=== PATIENT | male | born 1980 | race Caucasian/White ===

== ENCOUNTER 2017-11-25 23:37 | Inpatient (IN) | payer OTHER ==
[~2017-11-25] VITALS: Ht 188 cm; Wt 118.4 kg
[2017-11-26] MEDS ORDERED: CEFTRIAXONE 1,000 MG in SODIUM CHLORIDE 0.9% 50 ML IVPB ONE (00:30)
[2017-11-26] MEDS ORDERED: LIDOCAINE-MPF 2%, 2ML ONE (02:43)
[2017-11-26] MEDS ORDERED: CEFTRIAXONE 1,000 MG ONE (02:43)
[2017-11-26] MEDS ORDERED: LIDOCAINE-MPF 1%, 2ML ONE ×2 (02:45→11:29)
[2017-11-26] MEDS ORDERED: LIDOCAINE-MPF 1%, 5ML INFIL ONE (03:00)
[2017-11-26] MEDS ORDERED: CEFTRIAXONE 1,000 MG IM ONE (03:00)
[2017-11-26] MEDS ORDERED: SODIUM CHLORIDE FLUSH 10ML SYR IVF ONE (03:30)
[2017-11-26 03:44] LABS: BASOPHILS # (AUTO) 0.04 x10^3/uL (0-0.1); BASOPHILS % (AUTO) 0 % (0-1); EOSINOPHILS % (AUTO) 1 % (1-7); LYMPHOCYTES # (AUTO) 1.54 x10^3/uL (1-3.4); LYMPHOCYTES % (AUTO) 15 % (22-44); MD NO; MEAN CORPUSCULAR HEMOGLOBIN 29.7 pg (27.5-34.5); MEAN CORPUSCULAR HGB CONC 34.3 g/dL (33.2-36.2); MEAN CORPUSCULAR VOLUME 86.7 fL (81-97); MEAN PLATELET VOLUME 8.3 fL (7.4-10.4); MONOCYTES # (AUTO) 0.91 x10^3/uL (0.2-0.8); MONOCYTES % (AUTO) 9 % (2-9); NEUTROPHILS # (AUTO) 8.02 x10^3/uL (1.8-6.8); NEUTROPHILS % (AUTO) 76 % (42-75); PLATELET COUNT 187 x10^3/uL (130-400); RED BLOOD COUNT 5.05 x10^6/uL (4.38-5.82); RED CELL DISTRIBUTION WIDTH 13.6 % (9.4-14.8)
[2017-11-26 03:52] LABS: ALBUMIN 3.8 g/dL (3.4-5.0); ANION GAP 6 mmol/L (5-15); CHLORIDE 107 mmol/L (98-107); CREATININE 1.13 mg/dL (0.7-1.3)
[2017-11-26] MEDS ORDERED: SODIUM CHLORIDE FLUSH 10ML SYR IVF PRN (04:00)
[2017-11-26 04:15] VITALS: BP 126/81
[2017-11-26] MEDS ORDERED: hydrALAzine 20 MG/ML, 1ML IVPush PRN (04:30)
[2017-11-26] MEDS ORDERED: ONDANSETRON ODT 4 MG PO PRN (04:30)
[2017-11-26] MEDS ORDERED: ONDANSETRON 2MG/ML, 2ML IVPush PRN (04:30)
[2017-11-26] MEDS ORDERED: ENALAPRILAT 1.25 MG/ML, 2ML IVPush PRN (04:30)
[2017-11-26] MEDS ORDERED: morphine SULFATE 10 MG/ML, 1ML IVPush PRN (04:30)
[2017-11-26] MEDS ORDERED: DOCUSATE 100 MG CAPSULE PO PRN (04:30)
[2017-11-26] MEDS ORDERED: ACETAMINOPHEN 325 MG TABLET PO PRN (04:30)
[2017-11-26] MEDS ORDERED: OXYcodone IR 5MG TABLET PO PRN (04:30)
[2017-11-26] MEDS ORDERED: PROMETHAZINE 25 MG/ML, 1ML IM PRN (04:30)
[2017-11-26] MEDS ORDERED: LABETALOL 5MG/ML, 20ML IVPush PRN (04:30)
[2017-11-26] MEDS ORDERED: POLYETHYLENE GLYCOL 17 GM PACKET PO PRN (04:30)
[2017-11-26] MEDS ORDERED: BISACODYL 10 MG SUPP PR PRN (04:30)
[2017-11-26] MEDS: SODIUM CHLORIDE 0.9% 1,000 ML IV SCH ×2 (04:54→14:21)
[2017-11-26] MEDS: CLINDAMYCIN PMX 600MG/50ML 50 ML IV SCH ×3 (04:54→20:39)
[2017-11-26 05:51] LABS: HCT (SEDRATE) 42.9 % (39.2-51.8)
[2017-11-26 06:20] LABS: HEMOGLOBIN A1C 5.5 % (4.2-6.3)
[2017-11-26 06:21] LABS: C-REACTIVE PROTEIN, QUANT 4.5 mg/dL (0.02-0.49); FREE T4 (FREE THYROXINE) 1.32 ng/dL (0.76-1.46); THYROID STIMULATING HORMONE 1.45 mIU/L (0.358-3.740)
[2017-11-26 06:40] VITALS: BP 116/74
[2017-11-26 12:28] VITALS: BP 113/73
[2017-11-26 19:53] VITALS: BP 118/72
[2017-11-27 03:30] VITALS: BP 109/69
[2017-11-27] MEDS: CLINDAMYCIN PMX 600MG/50ML 50 ML IV SCH ×2 (04:20→11:49)
[2017-11-27 05:55] LABS: ALANINE AMINOTRANSFERASE 27 U/L (12-78); ALBUMIN 3.3 g/dL (3.4-5.0); ANION GAP 5 mmol/L (5-15); CALCIUM 8.5 mg/dL (8.5-10.1); CHLORIDE 109 mmol/L (98-107)
[2017-11-27 05:57] LABS: ALKALINE PHOSPHATASE 43 U/L (45-117); BILIRUBIN,TOTAL 0.9 mg/dL (0.2-1.0); TOTAL PROTEIN 7.2 g/dL (6.4-8.2)
[2017-11-27 06:01] LABS: BASOPHILS # (AUTO) 0.01 x10^3/uL (0-0.1); BASOPHILS % (AUTO) 0 % (0-1); EOSINOPHILS # (AUTO) 0.19 x10^3/uL (0-0.4); EOSINOPHILS % (AUTO) 3 % (1-7); LYMPHOCYTES # (AUTO) 1.54 x10^3/uL (1-3.4); LYMPHOCYTES % (AUTO) 22 % (22-44); MD NO; MEAN CORPUSCULAR HEMOGLOBIN 29.6 pg (27.5-34.5); MEAN CORPUSCULAR VOLUME 87.3 fL (81-97); MEAN PLATELET VOLUME 8.3 fL (7.4-10.4); MONOCYTES # (AUTO) 0.79 x10^3/uL (0.2-0.8); MONOCYTES % (AUTO) 11 % (2-9); NEUTROPHILS # (AUTO) 4.62 x10^3/uL (1.8-6.8); NEUTROPHILS % (AUTO) 65 % (42-75); PLATELET COUNT 200 x10^3/uL (130-400); RED BLOOD COUNT 4.88 x10^6/uL (4.38-5.82); RED CELL DISTRIBUTION WIDTH 13.6 % (9.4-14.8)
[2017-11-27 06:45] VITALS: BP 122/80
[2017-11-27] MEDS ORDERED: CLIN300C8 PO (10:36)
[2017-11-27] MEDS ORDERED: L.AC1CAP4 PO (10:37)
== END 2017-11-27 13:45 | disposition home or self-care (01) | DRG 603 ==
LOC: ED 11-26 00:21 → 4EST 11-26 03:31 → DCLOUNGE 11-27 13:24
PROVIDERS: ADMIT Internal Medicine; ATTEND Internal Medicine
PROC: 0Y953ZZ Drainage of Right Inguinal Region, Percutaneous Approach (ICD-10-PCS; principal; 2017-11-26)
PROC: 0YJ5XZZ Inspection of Right Inguinal Region, External Approach (ICD-10-PCS; 2017-11-26)
DX: L02.214 Cutaneous abscess of groin (principal); B35.6 Tinea cruris; L03.311 Cellulitis of abdominal wall
CPT/HCPCS: 10160; 36415; 75989; 76705; 80048; 80053; 82040; 83036; 83735; 84100; 84439; 84443; 85025; 85651; 86140; 87070; 87075; 87186; 87205; 96372; 99285; J0696; J3490; J7030